=== PATIENT | female | born 1930 | race African-American/Black ===

== ENCOUNTER 2018-10-06 16:29 | Emergency (ER) | payer OTHER ==
[2018-10-06 16:39] VITALS: BP 119/56; PULSE 79; TEMP 97.6; BMI 36.0
[2018-10-06] MEDS ORDERED: KETOROLAC TROMETHAMINE 30 MG/1 ML VIAL IVPUSH ONE (17:58)
[2018-10-06] MEDS ORDERED: diazePAM 2 MG TABLET PO ONE (17:58)
--- NOTE | 2018-10-06 18:03 | PDOC ---
Attending Attestation - HPI HPI: 10/06/18 19:45 The patient is a 88 year old female with a past medical history of HTN and DM who presents the the ED today complaining of lower back pain for the past 5 days. The patient reports spasm and sharp sensation on her left lower back ever since she got on an elevated vehicle 5 days ago. The patient reports difficulty bending down. Denies fever or chills. Denies nausea or vomiting. Denies trauma, saddle anesthesia, urinary/ bowel incontinence. Puneet any other complications. <Curtis Sagastume - Last Filed: 10/06/18 19:45> - Resident Resident Name: Tripp Agrawal - ED Attending Attestation I have performed the following: I have examined & evaluated the patient, The case was reviewed & discussed with the resident, I agree w/resident's findings & plan, Exceptions are as noted - HPI HPI: 10/06/18 17:59 88 yo female with h/o HTN,osteoarthrtis has had a week of left sided low back pain near SI joint . She was seeing her PCP for this pain and she was started on Relafen but she states it is not helping her. - Physicial Exam PE: 10/06/18 20:22 88 yo female who is feeling better after her pain medication head ncat neck supple lungs cta b/l cvs [id number] abd protuberant left hip discomfort,able to bear weight skin warm and dry neuro axox3, moving all extremities psych appropriate - Medical Decision Making 10/06/18 18:03 -this 88 yo female feels like she "pulled a muscle" and her hip pain has been intermittent and varying in intensity.Able to walk w cane. Symptoms improved after pain meds and pt discharged home. 10/07/18 02:27 <Renu Mcelroy - Last Filed: 10/07/18 02:28> Attestations - Attestations 10/06/18 19:45 Documentation prepared by Curtis Sagastume, acting as medical concierge for Renu Mcelroy MD <Curtis Sagastume - Last Filed: 10/06/18 19:45>
[2018-10-06 18:15] LABS: BASO % 0.5 % (0-2.0); EOS % 1.8 % (0-4.5); HEMATOCRIT 34.5 % (32.4-45.2); HEMOGLOBIN 11.5 GM/dL (10.7-15.3); LYMPH % 19.4 % (8-40); MCH 22.7 pg (25.7-33.7); MCHC 33.2 g/dl (32.0-36.0); MEAN CELL VOLUME 68.3 fl (80-96); MEAN PLT VOLUME 7.7 fl (7.5-11.1); MONO % 8.6 % (3.8-10.2); NEUT % 69.7 % (42.8-82.8); PLATELET COUNT 265 K/MM3 (134-434); RBC 5.05 M/mm3 (3.60-5.2); RDW 16.6 % (11.6-15.6); WHITE BLOOD COUNT 8.7 K/mm3 (4.0-10.0)
[2018-10-06] MEDS ORDERED: KETOROLAC TROMETHAMINE 15 MG/ML VIAL ONE (18:16)
[2018-10-06] MEDS ORDERED: diazePAM 2 MG TABLET ONE (18:16)
[2018-10-06 18:44] LABS: ALBUMIN 3.3 g/dl (3.4-5.0); ALK PHOS 85 U/L (45-117); ANION GAP 11 MMOL/L (8-16); BILIRUBIN,TOTAL 0.6 mg/dL (0.2-1); BLOOD UREA NITROGEN 25 mg/dL (7-18); CALCIUM 9.5 mg/dL (8.5-10.1); CHLORIDE 104 mmol/L (98-107); CO2 25 mmol/L (21-32); CREATININE 1.1 mg/dL (0.55-1.3); GLUCOSE,RANDOM 110 mg/dL (74-106); POTASSIUM 3.4 mmol/L (3.5-5.1); SGOT/AST 32 U/L (15-37); SGPT/ALT 18 U/L (13-61); SODIUM 139 mmol/L (136-145); TOT PROT 7.4 g/dl (6.4-8.2)
--- NOTE | 2018-10-06 19:13 | PDOC ---
History of Present Illness - General Chief Complaint: Back Pain Stated Complaint: INJURED BACK,SUNDAY Time Seen by Provider: 10/06/18 17:25 History Source: Patient Exam Limitations: No Limitations - History of Present Illness Initial Comments: 10/06/18 19:07 The patient is an 88F with a PMH of HTN and DM who presents to the ER with complaints of low back pain. The patient states that she was getting into an elevated vehicle 5 days ago and felt herself pull a muscle in her L lower back. She states that since then, she has had a spasm, sharp sensation in her L lower back associated with difficulty bending down. She denies trauma, saddle anesthesia, fever, chills, urinary/bowel incontinence, numbness, tingling, or weakness in her leg. She denies any other complaints. Past History - Past Medical History Allergies/Adverse Reactions: Allergies Allergy/AdvReac Type Severity Reaction Status Date / Time No Known Allergies Allergy Verified 10/06/18 16:38 Home Medications: Ambulatory Orders Salmeterol/Fluticasone [Advair 250Mg/50Mg] 1 inh IH BID 03/11/12 Amlodipine Besylate 10 mg PO DAILY 10/06/18 Aspirin Coated [Ecotrin -] 81 mg PO DAILY 10/06/18 Losartan/Hydrochlorothiazide [Losartan-Hctz 100-25 mg Tab] 1 each PO DAILY 10/06 Montelukast Sodium [Singulair] 10 mg PO DAILY 10/06/18 Nabumetone 500 mg PO BID 10/06/18 Asthma: Yes COPD: No HTN: Yes Hypercholesterolemia: Yes - Suicide/Smoking/Psychosocial Hx Smoking History: Never smoked Have you smoked in the past 12 months: No Review of Systems - Review of Systems Able to Perform ROS?: Yes Comments:: 10/06/18 19:09 GENERAL/CONSTITUTIONAL: No fever or chills. No weakness. HEAD, EYES, EARS, NOSE AND THROAT: No change in vision. No ear pain or discharge. No sore throat. CARDIOVASCULAR: No chest pain, palpitations, or lightheadedness. RESPIRATORY: No cough, wheezing, shortness of breath, or hemoptysis. GASTROINTESTINAL: No nausea, vomiting, diarrhea, constipation, or abdominal pain. GENITOURINARY: No dysuria, frequency, hematuria, or change in urination. MUSCULOSKELETAL: Positive for low back pain. No joint or muscle swelling or pain. SKIN: No rash or lesions. NEUROLOGIC: No headache, numbness, tingling, focal weakness, loss of consciousness, or change in strength/sensation. ENDOCRINE: No increased thirst. No abnormal weight change. HEMATOLOGIC/LYMPHATIC: No anemia, easy bleeding, or history of blood clots. ALLERGIC/IMMUNOLOGIC: No hives or skin allergy. Is the patient limited [place]alan proficient: No *Physical Exam - Vital Signs Last Vital Signs Temp Pulse Resp BP Pulse Ox 97.6 F 79 18 119/56 L 99 10/06/18 16:35 10/06/18 16:35 10/06/18 16:35 10/06/18 16:35 10/06/18 16:35 - Physical Exam Comments: 10/06/18 19:13 GENERAL: Well developed, well nourished. Awake and alert. No acute distress. HEENT: Normocephalic, atraumatic. Hearing grossly normal. Moist mucous membranes. PERRLA, EOMI. No conjunctival pallor. Sclera are non-icteric. NECK: Supple. Full ROM. No JVD. CARDIOVASCULAR: Regular rate and rhythm. No murmurs, rubs, or gallops. PULMONARY: No evidence of respiratory distress. Lungs clear to auscultation bilaterally. No wheezing, rales or rhonchi. ABDOMINAL: Soft. Non-tender. Non-distended. No rebound or guarding. GENITOURINARY: No CVA tenderness bilaterally. MUSCULOSKELETAL: Mild TTP over L SI joint. Normal range of motion at all joints. EXTREMITIES: No cyanosis. No clubbing. No edema. No calf tenderness or swelling. SKIN: Warm and dry. Normal capillary refill. No rashes. No jaundice. NEUROLOGICAL: Alert, awake, appropriate. Cranial nerves 2-12 intact. No deficits to light touch and temperature in lower extremities. 5/5 strength in quadriceps, hamstrings, and gastrocnemius. Normal speech. PSYCHIATRIC: Cooperative. Good eye contact. Appropriate mood and affect. Moderate Sedation - Procedure Monitoring Vital Signs: Procedure Monitoring Vital Signs Temperature 97.6 F 10/06/18 16:35 Pulse Rate 79 10/06/18 16:35 Respiratory Rate 18 10/06/18 16:35 Blood Pressure 119/56 L 10/06/18 16:35 O2 Sat by Pulse Oximetry (%) 99 10/06/18 16:35 ED Treatment Course - LABORATORY CBC & Chemistry Diagram: 10/06/18 18:04 10/06/18 18:04 - ADDITIONAL ORDERS Additional order review: Laboratory Results 10/06/18 18:04 Sodium 139 Potassium 3.4 L Chloride 104 Carbon Dioxide 25 Anion Gap 11 BUN 25 H Creatinine 1.1 Creat Clearance w eGFR 46.77 Random Glucose 110 H Calcium 9.5 Total Bilirubin 0.6 AST 32 ALT 18 Alkaline Phosphatase 85 Total Protein 7.4 Albumin 3.3 L 10/06/18 18:04 RBC 5.05 MCV 68.3 L MCHC 33.2 RDW 16.6 H MPV 7.7 Neutrophils % 69.7 Lymphocytes % 19.4 Monocytes % 8.6 Eosinophils % 1.8 Basophils % 0.5 - Medications Given in the ED: ED Medications Discontinued Medications Generic Name Dose Route Start Last Admin Trade Name Freq PRN Reason Stop Dose Admin Diazepam 2 mg 10/06/18 17:58 10/06/18 18:21 Valium - PO 10/06/18 17:59 2 mg ONCE ONE Administration Ketorolac Tromethamine 15 mg 10/06/18 17:58 10/06/18 18:21 Toradol Injection - IVPUSH 10/06/18 17:59 15 mg ONCE ONE Administration Medical Decision Making - Medical Decision Making 10/06/18 19:14 The patient is an 88F with a PMH of HTN and DM who presents to the ER with complaints of low back pain 2/2 abnormal movement while getting into an elevated vehicle 5 days ago. She has mild TTP with no midline tenderness and no red flag symptoms without trauma. Will give toradol and valium and reassess. Pt lives by herself but I have ensured that she will be spending the night with family tonight so she will be monitored after medication administration. 10/06/18 19:45 Pt states she feels much better. Pt ambulated with walker (pt's baseline) without issues and states she was unable to do that previously. Will d/c with PCP f/u. *DC/Admit/Observation/Transfer Diagnosis at time of Disposition: Low back pain Qualifiers: Chronicity: acute Back pain laterality: left Sciatica presence: without sciatica Qualified Code(s): M54.5 - Low back pain - Discharge Dispostion Disposition: HOME Condition at time of disposition: Stable Decision to Admit order: No - Referrals Referrals: Bety Chowdhury MD [Primary Care Provider] - - Patient Instructions Printed Discharge Instructions: DI for Low Back Pain Additional Instructions: Please follow up with your primary care physician on Sunday Please return to the ER if you have any signs or symptoms of chest pain, shortness of breath, uncontrollable fever, chills, nausea, vomiting, numbness, tingling, or weakness in any part of your body, changes in vision, or slurred speech. Please take your medications as prescribed. Please return to the ER if symptoms persist, worsen, or new symptoms arise. - Post Discharge Activity
== END 2018-10-06 21:27 | disposition home or self-care (01) ==
LOC: JER 16:29
PROC: 3E0333Z Introduction of Anti-inflammatory into Peripheral Vein, Percutaneous Approach (ICD-10-PCS; principal; 2018-10-06)
DX: M54.5 Low back pain (principal); M62.830 Muscle spasm of back; V48.4XXA Person boarding or alighting a car injured in noncollision transport accident, initial encounter; Y92.488 Other paved roadways as the place of occurrence of the external cause; Y93.89 Activity, other specified; Y99.8 Other external cause status; I10 Essential (primary) hypertension; E11.9 Type 2 diabetes mellitus without complications; E78.5 Hyperlipidemia, unspecified; Z87.19 Personal history of other diseases of the digestive system; Z99.89 Dependence on other enabling machines and devices
CPT/HCPCS: 36415; 80053; 85025; 96374; 99282-25